=== PATIENT | male | born 1995 | race Caucasian/White ===

== ENCOUNTER 2018-09-20 04:24 | Emergency (ER) | payer MEDICAID ==
[2018-09-20 04:42] VITALS: BP 115/83
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
== END 2018-09-20 05:05 | disposition home or self-care (01) ==
LOC: EEVIPCON 04:24
DX: F19.10 Other psychoactive substance abuse, uncomplicated (principal); F10.920 Alcohol use, unspecified with intoxication, uncomplicated; V49.49XA Driver injured in collision with other motor vehicles in traffic accident, initial encounter; Y92.488 Other paved roadways as the place of occurrence of the external cause; Y93.9 Activity, unspecified; Y99.9 Unspecified external cause status